=== PATIENT | female | born 1960 ===

== ENCOUNTER 2018-12-13 09:06 | Day surgery (SDC) | payer OTHER ==
[~2018-12-13 09:06] MED LIST: AVAPRO300 MG; TOPROL XL100 M1
== END 2018-12-13 20:10 | disposition home or self-care (01) ==
LOC: CIR.AMB 09:06
DX: S83.241A Other tear of medial meniscus, current injury, right knee, initial encounter (principal); M67.51 Plica syndrome, right knee; M22.41 Chondromalacia patellae, right knee